=== PATIENT | male | born 1960 | race Caucasian/White ===

== ENCOUNTER → 2023-11-15 07:41 | Outpatient (REF) | payer BC, SELFPAY | LOC: DHCBC/DCA 07:41 | PROVIDERS: ATTENDING PHYSICIAN Internal Medicine; FAMILY PHYSICIAN Family Medicine | DX: R07.9 Chest pain, unspecified (principal); I10 Essential (primary) hypertension | CPT/HCPCS: 78452; 93017; A9500 ==

== ENCOUNTER → 2024-08-20 08:42 | Outpatient (REF) | payer BC, SELFPAY | LOC: HWCARD 08:42 | PROVIDERS: ATTENDING PHYSICIAN Physical Medicine & Rehabilitation; FAMILY PHYSICIAN Family Medicine | DX: Z01.818 Encounter for other preprocedural examination (principal) | CPT/HCPCS: 93005 ==

== ENCOUNTER → 2025-03-01 10:28 | Outpatient (REF) | payer BC, SELFPAY | LOC: RAD 10:28 | PROVIDERS: ATTENDING PHYSICIAN Physical Medicine & Rehabilitation; FAMILY PHYSICIAN Family Medicine | DX: Z01.818 Encounter for other preprocedural examination (principal) | CPT/HCPCS: 93005 ==